=== PATIENT | female | born 1950 ===

== ENCOUNTER 2018-12-02 13:36 | Outpatient (REF) | payer MEDICARE, SELFPAY | END 2018-12-02 13:56 | LOC: NCHCN 13:36 | PROVIDERS: Visit Provider Family Medicine | DX: R82.79 Other abnormal findings on microbiological examination of urine (principal); Z87.440 Personal history of urinary (tract) infections | CPT/HCPCS: 87077; 87086; 87186 ==

== ENCOUNTER 2019-04-24 15:37 | Outpatient (REF) | payer MEDICARE, SELFPAY | END 2019-04-24 15:57 | LOC: NCHCN 15:37 | PROVIDERS: PCP Family Medicine; Visit Provider Family Medicine | DX: R82.79 Other abnormal findings on microbiological examination of urine (principal); Z87.440 Personal history of urinary (tract) infections | CPT/HCPCS: 87077; 87086; 87186 ==

== ENCOUNTER 2019-10-20 16:50 | Outpatient (REF) | payer MEDICARE, SELFPAY ==
[2019-10-20 21:23] LABS: ALT 140 U/L (14-59); AST 138 U/L (15-37); Albumin 3.5 g/dL (3.4-5.0); Alkaline Phosphatase 401 U/L (46-116); Anion Gap 9.3 mmol/L (3-11); BUN 18 mg/dL (7-18); Bilirubin, Total 0.5 mg/dL (0.2-1.0); CO2 28.7 mmol/L (21.0-32.0); CREATININE 0.77 mg/dL (0.55-1.02); Calcium 9.7 mg/dL (8.5-10.1); Chloride 100 mmol/L (98-107); Glucose 119 mg/dL (74-106); HDL Cholesterol 60 mg/dL (40-60); Potassium 4.4 mmol/L (3.5-5.1); Sodium 138 mmol/L (136-145); TSH 1.42 uIU/mL (0.36-3.74); Total Protein 8.5 g/dL (6.4-8.2); Triglyceride 149 mg/dL (<150)
[2019-10-20 21:34] LABS: Calculated LDL 82 mg/dL; Cholesterol 171 mg/dL (<200)
== END 2019-10-20 17:10 ==
LOC: NCHCN 16:50
PROVIDERS: PCP Family Medicine; Visit Provider Family Medicine
DX: E03.9 Hypothyroidism, unspecified (principal); I10 Essential (primary) hypertension; E11.9 Type 2 diabetes mellitus without complications; R53.83 Other fatigue
CPT/HCPCS: 80053; 80061; 84443

== ENCOUNTER 2019-10-27 19:08 | Outpatient (REF) | payer MEDICARE, SELFPAY ==
[2019-10-27 21:24] LABS: ALT 170 U/L (14-59); AST 166 U/L (15-37); Albumin 3.4 g/dL (3.4-5.0); Alkaline Phosphatase 436 U/L (46-116); Anion Gap 7.8 mmol/L (3-11); BUN 14 mg/dL (7-18); Bilirubin, Total 0.6 mg/dL (0.2-1.0); CO2 29.2 mmol/L (21.0-32.0); CREATININE 0.69 mg/dL (0.55-1.02); Calcium 9.4 mg/dL (8.5-10.1); Chloride 99 mmol/L (98-107); Glucose 89 mg/dL (74-106); Potassium 4.2 mmol/L (3.5-5.1); Sodium 136 mmol/L (136-145); Total Protein 8.6 g/dL (6.4-8.2)
[2019-10-27 21:53] LABS: GGT 1904 U/L (5-55)
== END 2019-10-27 19:28 ==
LOC: NCHCN 19:08
PROVIDERS: PCP Family Medicine; Visit Provider Family Medicine
DX: R94.5 Abnormal results of liver function studies (principal); E11.9 Type 2 diabetes mellitus without complications
CPT/HCPCS: 80053; 82977

== ENCOUNTER 2019-11-24 15:03 | Outpatient (REF) | payer MEDICARE, SELFPAY ==
[2019-11-24 21:43] LABS: ALT 83 U/L (14-59); AST 69 U/L (15-37); Albumin 3.5 g/dL (3.4-5.0); Alkaline Phosphatase 365 U/L (46-116); Bilirubin, Direct 0.33 mg/dL (0.00-0.20); Bilirubin, Total 0.5 mg/dL (0.2-1.0); Total Protein 8.1 g/dL (6.4-8.2)
[2019-11-27 15:02] LABS: Albumin 47.8 % (55.8-66.1); Comment (See Note); Total Protein 8.2 g/dL (6.3-8.2)
[2019-11-28 08:44] LABS: Immunotyping, Serum (See Note)
== END 2019-11-24 15:23 ==
LOC: NCHCN 15:03
PROVIDERS: PCP Family Medicine; Visit Provider Family Medicine
DX: E88.09 Other disorders of plasma-protein metabolism, not elsewhere classified (principal); R94.5 Abnormal results of liver function studies
CPT/HCPCS: 80076; 84165; 86320

== ENCOUNTER 2020-04-11 18:30 | Outpatient (REF) | payer MEDICARE, SELFPAY ==
[2020-04-11 20:40] LABS: ALT 69 U/L (14-59); AST 54 U/L (15-37); Albumin 3.5 g/dL (3.4-5.0); Alkaline Phosphatase 244 U/L (46-116); Anion Gap 9.9 mmol/L (3-11); BUN 17 mg/dL (7-18); Bilirubin, Total 0.4 mg/dL (0.2-1.0); CO2 28.1 mmol/L (21.0-32.0); CREATININE 0.78 mg/dL (0.55-1.02); Calcium 9.7 mg/dL (8.5-10.1); Calculated LDL 134 mg/dL (<100); Chloride 99 mmol/L (98-107); Cholesterol 227 mg/dL (<200); Glucose 95 mg/dL (74-106); HDL Cholesterol 47 mg/dL (40-60); Potassium 4.1 mmol/L (3.5-5.1); Sodium 137 mmol/L (136-145); Total Protein 7.7 g/dL (6.4-8.2); Triglyceride 234 mg/dL (<150)
[2020-04-11 21:00] LABS: Hemoglobin A1C 6.9 % (3.8-5.6)
== END 2020-04-11 18:50 ==
LOC: NCHCN 18:30
PROVIDERS: PCP Family Medicine; Visit Provider Family Medicine
DX: E11.9 Type 2 diabetes mellitus without complications (principal); E88.09 Other disorders of plasma-protein metabolism, not elsewhere classified; R94.5 Abnormal results of liver function studies; I10 Essential (primary) hypertension
CPT/HCPCS: 80053; 80061; 83036

== ENCOUNTER 2020-04-19 11:41 | Outpatient (REF) | payer MEDICARE, SELFPAY ==
[2020-04-22 14:41] LABS: IgA 426 mg/dL (85-499); Tissue Transglutaminase IgA <1.2 U/mL (<4.0)
== END 2020-04-19 12:01 ==
LOC: NCHCN 11:41
PROVIDERS: PCP Family Medicine; Visit Provider Family Medicine
DX: K59.00 Constipation, unspecified (principal); R53.83 Other fatigue
CPT/HCPCS: 82784; 83516

== ENCOUNTER 2020-06-28 09:56 | Outpatient (REF) | payer MEDICARE, SELFPAY ==
[2020-06-28 21:16] LABS: ALT 95 U/L (14-59); AST 68 U/L (15-37); Albumin 3.5 g/dL (3.4-5.0); Alkaline Phosphatase 301 U/L (46-116); Bilirubin, Direct 0.39 mg/dL (0.00-0.20); Bilirubin, Total 0.6 mg/dL (0.2-1.0); Total Protein 8.1 g/dL (6.4-8.2)
== END 2020-06-28 10:16 ==
LOC: NCHCN 09:56
PROVIDERS: PCP Family Medicine; Visit Provider Family Medicine
DX: R94.5 Abnormal results of liver function studies (principal)
CPT/HCPCS: 80076

== ENCOUNTER 2020-12-17 16:41 | Outpatient (REF) | payer MEDICARE, SELFPAY ==
[2020-12-17 22:12] LABS: ALT 87 U/L (14-59); AST 99 U/L (15-37); Albumin 2.9 g/dL (3.4-5.0); Alkaline Phosphatase 522 U/L (46-116); BUN 16 mg/dL (7-18); Bilirubin, Total 1.2 mg/dL (0.2-1.0); CREATININE 0.8 mg/dL (0.55-1.02); Calcium 9.1 mg/dL (8.5-10.1); Chloride 100 mmol/L (98-107); Glucose 78 mg/dL (74-106); Potassium 4.1 mmol/L (3.5-5.1); Sodium 139 mmol/L (136-145); Total Protein 8.4 g/dL (6.4-8.2)
[2020-12-17 22:17] LABS: Hemoglobin A1C 7.2 % (<5.7)
[2020-12-18 14:56] LABS: TSH 1.97 uIU/mL (0.36-3.74)
[2020-12-19 08:27] LABS: IgG 2058 mg/dL (610-1,616)
[2020-12-19 13:30] LABS: ANA Interpretation Negative (Negative)
[2020-12-19 18:46] LABS: Liver/Kidney Microsome Type 1 <5.0 U
== END 2020-12-17 16:42 | disposition home or self-care (01) ==
LOC: NCHCN 16:41
PROVIDERS: Internal Medicine Gastroenterology; PCP Family Medicine; Visit Provider Family Medicine
DX: E11.9 Type 2 diabetes mellitus without complications (principal); R94.5 Abnormal results of liver function studies; E03.9 Hypothyroidism, unspecified
CPT/HCPCS: 80053; 82784; 83036; 84443; 86038; 86255

== ENCOUNTER 2021-09-16 17:16 | Outpatient (REF) | payer MEDICARE, SELFPAY | END 2021-09-16 17:17 | disposition home or self-care (01) | LOC: NCHCN 17:16 | PROVIDERS: PCP Family Medicine; Visit Provider Family Medicine | DX: Z87.440 Personal history of urinary (tract) infections (principal) | CPT/HCPCS: 87077; 87086 ==

== ENCOUNTER 2022-02-27 22:55 | Outpatient (REF) | payer MEDICARE, SELFPAY ==
[2022-02-27 21:03] LABS: COMMENT (LAB VIEW ONLY) 30.78 mg/dL
[2022-02-27 21:12] LABS: Microalb ug/mg Crea 227.7 ug/mg Cr
== END 2022-02-27 22:56 | disposition home or self-care (01) ==
LOC: NCHCN 22:55
PROVIDERS: PCP Family Medicine; Visit Provider Family Medicine
DX: E11.9 Type 2 diabetes mellitus without complications (principal)
CPT/HCPCS: 82043; 82570

== ENCOUNTER 2022-08-28 16:04 | Outpatient (REF) | payer MEDICARE, SELFPAY ==
[2022-08-28 21:22] LABS: HCT 31.1 % (36.0-46.0); HGB 9.5 g/dL (11.2-15.7); MCHC 30.5 % (32.0-36.0); MCV 98 fL (80-95); Platelet Count 341 10^3/uL (130-400); RBC 3.17 10^6/uL (3.93-5.22); RDW 15.5 % (11.7-14.6); WBC 10.09 10^3/uL (4.4-10.8)
[2022-08-28 21:40] LABS: TSH 1.27 uIU/mL (0.36-3.74)
== END 2022-08-28 16:05 | disposition home or self-care (01) ==
LOC: NCHCN 16:04
PROVIDERS: PCP Family Medicine; Visit Provider Family Medicine
DX: E03.9 Hypothyroidism, unspecified (principal); D64.9 Anemia, unspecified
CPT/HCPCS: 85027; 84443

== ENCOUNTER 2023-02-19 12:05 | Outpatient (REF) | payer MEDICARE, SELFPAY ==
[2023-02-19 17:10] LABS: COMMENT (LAB VIEW ONLY) 46.27 mg/dL
[2023-02-19 17:12] LABS: Microalb ug/mg Crea 421.4 ug/mg Cr
[2023-02-19 20:58] LABS: HCT 36.8 % (36.0-46.0); HGB 11.1 g/dL (11.2-15.7); MCH 29.1 pg (27.0-33.0); MCHC 30.2 % (32.0-36.0); MCV 97 fL (80-95); MPV 11.1 fL (8.0-11.0); Platelet Count 221 10^3/uL (130-400); RBC 3.81 10^6/uL (3.93-5.22); RDW 20.6 % (11.7-14.6); RDW-SD 72.5 fL; WBC 7.34 10^3/uL (4.4-10.8)
[2023-02-19 21:09] LABS: ALT 146 U/L (14-59); AST 214 U/L (15-37); Albumin 3.5 g/dL (3.4-5.0); Alkaline Phosphatase 535 U/L (46-116); Anion Gap 6.8 mmol/L (3-11); BUN 16 mg/dL (7-18); Bilirubin, Total 0.5 mg/dL (0.2-1.0); CO2 30.2 mmol/L (21.0-32.0); CREATININE 0.9 mg/dL (0.55-1.02); Calcium 9.8 mg/dL (8.5-10.1); Chloride 104 mmol/L (98-107); Estimated GFR 67.08 (mL/min/1.73m2); Glucose 64 mg/dL (74-106); Sodium 141 mmol/L (136-145); Total Protein 9.3 g/dL (6.4-8.2)
== END 2023-02-19 12:06 | disposition home or self-care (01) ==
LOC: NCHCN 12:05
PROVIDERS: PCP Family Medicine; Visit Provider Family Medicine
DX: E11.9 Type 2 diabetes mellitus without complications (principal); R30.0 Dysuria; R53.83 Other fatigue; R94.5 Abnormal results of liver function studies
CPT/HCPCS: 80053; 85027; 82043; 82570; 87086

== ENCOUNTER 2023-11-11 17:06 | Outpatient (REF) | payer MEDICARE, SELFPAY ==
[2023-11-11 20:41] LABS: HGB 10.7 g/dL (11.2-15.7); MCH 29.2 pg (27.0-33.0); MCHC 30.6 % (32.0-36.0); MCV 95 fL (80-95); MPV 9.8 fL (8.0-11.0); Platelet Count 324 10^3/uL (130-400); RBC 3.67 10^6/uL (3.93-5.22); RDW 15.4 % (11.7-14.6); WBC 9.25 10^3/uL (4.4-10.8)
[2023-11-11 21:04] LABS: COMMENT (LAB VIEW ONLY) 58.06 mg/dL; Microalb ug/mg Crea 1063.9 ug/mg Cr
[2023-11-11 21:19] LABS: ALT 68 U/L (14-59); AST 59 U/L (15-37); Alkaline Phosphatase 373 U/L (46-116); Anion Gap 10.4 mmol/L (3-11); BUN 31 mg/dL (7-18); Bilirubin, Total 0.5 mg/dL (0.2-1.0); CO2 26.6 mmol/L (21.0-32.0); Calcium 9.5 mg/dL (8.5-10.1); Calculated LDL 52 mg/dL (<100); Chloride 106 mmol/L (98-107); Cholesterol 124 mg/dL (<200); Estimated GFR 58.75 (mL/min/1.73m2); Glucose 107 mg/dL (74-106); HDL Cholesterol 40 mg/dL (40-60); Sodium 143 mmol/L (136-145); TSH 1.21 uIU/mL (0.36-3.74); Total Protein 8.9 g/dL (6.4-8.2); Triglyceride 163 mg/dL (<150); Vitamin B12 448 pg/mL (193-986)
[2023-11-11 21:22] LABS: Folate > 20.0 ng/mL (8.6-20.0)
== END 2023-11-11 17:07 | disposition home or self-care (01) ==
LOC: NCHCN 17:06
PROVIDERS: PCP Family Medicine; Visit Provider Family Medicine
DX: E03.9 Hypothyroidism, unspecified (principal); D64.9 Anemia, unspecified; I10 Essential (primary) hypertension; E11.9 Type 2 diabetes mellitus without complications; K83.01 Primary sclerosing cholangitis; Z79.899 Other long term (current) drug therapy
CPT/HCPCS: 80053; 80061; 85027; 82043; 82570; 82607; 82746; 83036; 84443

== ENCOUNTER 2024-05-10 14:17 | Outpatient (REF) | payer MEDICARE, SELFPAY ==
[2024-05-10 21:31] LABS: HCT 32.9 % (36.0-46.0); HGB 10.2 g/dL (11.2-15.7); MCH 29.1 pg (27.0-33.0); MCV 94 fL (80-95); MPV 9.1 fL (8.0-11.0); Platelet Count 194 10^3/uL (130-400); RBC 3.51 10^6/uL (3.93-5.22); RDW-SD 57.8 fL; WBC 6.45 10^3/uL (4.4-10.8)
[2024-05-10 21:44] LABS: ALT 98 U/L (14-59); AST 83 U/L (15-37); Albumin 3.3 g/dL (3.4-5.0); Alkaline Phosphatase 288 U/L (46-116); Anion Gap 13.2 mmol/L (3-11); BUN 21 mg/dL (7-18); Bilirubin, Total 0.66 mg/dL (0.2-1.0); CO2 22.8 mmol/L (21.0-32.0); CREATININE 1.3 mg/dL (0.55-1.02); Calcium 10.1 mg/dL (8.5-10.1); Chloride 105 mmol/L (98-107); Estimated GFR 42.88 (mL/min/1.73m2); Glucose 104 mg/dL (74-106); Sodium 141 mmol/L (136-145); Total Protein 8.5 g/dL (6.4-8.2)
[2024-05-10 21:53] LABS: Hemoglobin A1C 6.1 % (<5.7)
== END 2024-05-10 14:18 | disposition home or self-care (01) ==
LOC: NCHCN 14:17
PROVIDERS: PCP Family Medicine; Visit Provider Family Medicine
DX: E11.9 Type 2 diabetes mellitus without complications (principal); K74.60 Unspecified cirrhosis of liver
CPT/HCPCS: 80053; 85027; 83036